=== PATIENT | male | born 1980 | race Caucasian/White ===

== ENCOUNTER 2016-04-17 21:00 | Emergency (ER) | payer OTHER ==
[~2016-04-17] VITALS: Ht 165.1 cm; Wt 90.7 kg
[~2016-04-17 21:00] MED LIST: CITALOPRAM HBR20 MG PO; OMEPRAZOLE40 M1 PO; PERCOCET 5-3251 EACH PO; ZOFRAN4 M2 PO
--- NOTE | 2016-04-17 21:17 | ED EAR COMPLAINT ---
History of Present Illness General Chief Complaint: Ear Complaints Stated Complaint: RIGHT EAR PAIN Source: patient Exam Limitations: no limitations Vital Signs & Intake/Output Vital Signs & Intake/Output Vital Signs Date Time Temp Pulse Resp B/P Pulse O2 O2 Flow FiO2 Ox Delivery Rate 04/179 97.9 76 18 124/68 98 Room Air 04/17 2117 Room Air 04/17 2101 97.6 88 18 139/86 98 Room Air ED Intake and Output 04/18 0000 04/17 1200 Intake Total 0 Output Total Balance 0 Intake, Oral 0 Patient 200 lb Weight Allergies Coded Allergies: gluten (DIARRHEA 01/18/16) Reconcile Medications Amoxicillin 500 MG TABLET 1 TAB PO TID URI Citalopram Hydrobromide (Citalopram HBr) 20 MG TABLET 1 TAB PO DAILY DEPRESSION (Reported) Omeprazole 40 MG CAPSULE.DR 1 CAP PO DAILY GERD (Reported) Ondansetron HCl (Zofran) 4 MG TABLET 1 TAB PO Q6-8P PRN nausea Oxycodone HCl/Acetaminophen (Percocet 5-325 MG Tablet) 5 MG-325 MG TABLET 1 TAB PO TID PRN pain Triage Note: COMPLAINS OF R EAR PAIN THAT STARTED A FEW DAYS AGO. PMD PUT HIM ON Z PACK AND ITS NOT HELPING Triage Nurses Notes Reviewed? yes HPI: 35 yo M presenting with URI Sx, ear pain. URI Sx for the past 2-3 days wtih cough, nasal congestion, rhinorrhea, sore throat, denies odoynophagia. Ear fullness/decreased hearing with mild pain for the last 2 days. Evaluated by PMD, started on azithromycin, minimal improvement. Denies fevers, chills, chest pain, palpitations, SOB, AP, N/V/D/C, urinary Sx. (+) sick contacts, and daughter sick with similar Sx. (ISRAEL WELLS,GAYLE) Past History Travel History Traveled to [place] past 21 day No Medical History Any Pertinent Medical History? 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 No (GAYLE WOOD MD) Review of Systems Review of Systems Constitutional: Reports: malaise. Denies: chills, diaphoresis, fever, weakness. EENTM: Reports: ear pain, hearing changes, epistaxis, throat pain. Denies: eye pain, eye drainage, eye tearing, ear discharge, ear redness. Respiratory: Reports: cough. Denies: short of breath, wheezing. Cardiovascular: Reports: no symptoms. GI: Reports: no symptoms. Genitourinary: Reports: no symptoms. Musculoskeletal: Reports: no symptoms. Skin: Reports: no symptoms. Neurological/Psychological: Reports: no symptoms. Hematologic/Endocrine: Reports: no symptoms. Immunologic/Allergic: Reports: no symptoms. All Other Systems: Reviewed and Negative (GAYLE WOOD MD) Physical Exam Physical Exam General Appearance: well developed/nourished, no apparent distress, alert, awake Head: normal appearance Eyes: Bilateral: normal appearance. Ears: Bilateral: other (see below). Nose: Congestion Mouth/Throat: Mild pharyngeal erythema Neck: normal inspection, supple, full range of motion Cardiovascular/Respiratory: normal breath sounds, normal peripheral pulses Neurologic/Psych: no motor/sensory deficits, awake, alert, oriented x 3 Comments: Left Ear: TM unremarkable, External auditory canal unremarkable, No pain with movement of ear, no post-auricular swelling, TTP or erythema Right Ear: TM with mild serous effusion, no buldging or erythema, External auditory canal with mild erythema, no debris, No pain with movement of ear, no post-auricular swelling, TTP or erythema Ororpharynx: Mild pharyngeal erythema, uvula midline without tonsilallar swelling or exudates (GAYLE WOOD MD) Progress Differential Diagnoses I considered the following diagnoses in my evaluation of the patient: [ Viral URI, Strep pharyngitis, Viral pharyngitis, Otitis media] Plan of Care: Current Medications Sig/Elyse Start time Last Medication Dose Stop Time Status Admin Ibuprofen 800 MG ONCE ONE 04/17 2199 AC (Motrin) 04/17 2200 Physician MDM: 35 yo M presenting with URI Sx and ear pain/fullness x 2 days, already taking azithromycin. VSS, HEENT exam as above. 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 Symptomatic control of URI Sx and middle ear effusions discussed with patient. Given ibuprofen with resolution of pain. D/Basim with amoxicillin Rx, plan to start if no resolution of Sx after 48 hrs, given return precautions. D/W Dr. Kruse. (ISRAEL WELLS,GAYLE) Initial ED EKG: none (ISRAEL WELLS,GAYLE) Departure Departure Disposition: HOME OR SELF CARE Condition: Stable Clinical Impression Primary Impression: Ear pain Qualifiers: Laterality: right Qualified Code: H92.01 - Otalgia, right ear Secondary Impressions: URI (upper respiratory infection) Qualifiers: URI type: unspecified viral URI Qualified Codes: J06.9 - Acute upper respiratory infection, unspecified; B97.89 - Other viral agents as the cause of diseases classified elsewhere Referrals: TRAVIS WELLS,ANDREW (PCP/Family) Additional Instructions: Take ibuprofen or tylenol as needed for pain. Use over the counter decongestants to help ear drainage. Finish the Z-greg, if you are still having symptoms, take amoxicillin. Follow up with your primary care physician in the next 2-3 days. Return to the ED for any new, worsening, or concerning symptoms. Departure Forms: Customer Survey General Discharge Information Prescriptions: Current Visit Scripts Amoxicillin 1 TAB PO TID #30 TAB (ISRAEL WELLS,GAYLE) Resident Co-Sign Statement Statement: ED Attending supervision documentation- [x] I saw and evaluated the patient. I have also reviewed all the pertinent lab results and diagnostic results. I agree with the findings and the plan of care as documented in the Resident's documentation. [] I have reviewed the ED Record and agree with the Resident's documentation. [] Additions or exceptions (if any) to the Resident's note and plan are summarized below: [] (MAGDALENO WELLS,CARRI Lemons)
[2016-04-17] MEDS ORDERED: AMOXICILLIN500 M3 PO (22:03)
[2016-04-17 22:09] VITALS: BP 124/68
== END 2016-04-17 22:10 ==
LOC: ERH 21:00
DX: J06.9 Acute upper respiratory infection, unspecified (principal); H92.01 Otalgia, right ear